=== PATIENT | female | born 1990 | race Caucasian/White ===

== ENCOUNTER 2017-04-24 22:51 | Emergency (ER) | payer SELFPAY ==
--- NOTE | 2017-04-24 22:56 | ED.PDOC ---
History of Present Illness - General Chief Complaint: General Stated Complaint: vomiting/ diarrhea Time Seen by Provider: 04/24/17 22:55 Source: patient Exam Limitations: no limitations - History of Present Illness Initial Comments: Sameera Darnell 26 y/o female stated that she had watery diarrhea since last week followed by nausea vomiting for 3 days but today still feeling nauseated no longer vomiting but still with abdominal cramps after eating;no fever,no dysuria no recent antibiotic use,no ill contact;could not remember what she ate before getting sick. Timing/Duration: 1 week, intermittent Severity: moderate Improving Factors: nothing Worsening Factors: eating Associated Symptoms: other - see hpi Allergies/Adverse Reactions: Allergies NO KNOWN ALLERGY Allergy (Verified 04/24/17 23:17) Home Medications: Ambulatory Orders Loperamide-Simethicone [Imodium Multi-Symptom Rel 2-125 mg] 1 tab PO Q6HRS PRN # 30 tab 04/25/17 Promethazine Tab [Phenergan Tablet] 25 mg PO .Q4H PRN #14 tab 04/25/17 Review of Systems - Review of Systems Constitutional: States: no symptoms reported EENTM: States: no symptoms reported Respiratory: States: no symptoms reported Cardiology: States: no symptoms reported Gastrointestinal/Abdominal: States: see HPI Genitourinary: States: no symptoms reported Past Medical History (General) - Patient Medical History Hx Seizures: No Hx Asthma: No Hx Diabetes: No Surgical History: other - c section x 2 - Female History Patient is a Female of Child Bearing Age (10 -59 yrs old): Yes Hx Last Menstrual Period: 04/25/17 Patient : No Family Medical History - Family History Mother Family History: No Known Living Status: Still Living Father Living Status: Still Living Hx Family Hypertension: Yes Physical Exam - Physical Exam General Appearance: Alert, Comfortable, No apparent distress Eye Exam: bilateral normal Ears, Nose, Throat: hearing grossly normal, normal ENT inspection, normal pharynx Neck: non-tender, full range of motion, supple, normal inspection Respiratory: lungs clear, normal breath sounds Cardiovascular/Chest: normal peripheral pulses, regular rate, rhythm, no murmur Peripheral Pulses: radial,right: 2+, radial,left: 2+ Gastrointestinal/Abdominal: normal bowel sounds, non tender, soft, no organomegaly Back Exam: no CVA tenderness, no vertebral tenderness Extremity: no pedal edema, no calf tenderness Neurologic: alert, normal mood/affect, oriented x 3 Skin Exam: normal color, warm/dry Lymphatic: no adenopathy Progress - Progress Progress: 04/25/17 00:07 Vital Signs - 8 hr 04/24/17 04/24/17 22:56 23:11 Temperature 97.7 F Pulse Rate [ 106 H 106 H Left Radial] Respiratory 18 18 Rate Blood Pressure 126/87 [Left Arm] O2 Sat by Pulse 97 Oximetry Departure - Departure Clinical Impression: Nausea alone Diarrhea Qualifiers: Diarrhea type: unspecified type Qualified Code(s): R19.7 - Diarrhea, unspecified Time of Disposition: :33 Disposition: Discharge to Home or Self Care Condition: Good Departure Forms: ED Discharge - Pt. Copy, Patient Portal Self Enrollment Instructions: Loperamide, Probiotics May Decrease Intensity and Duration of Diarrhea Due to Infection, DI for Diarrhea and Traveler's Diarrhea -- Adult, Diarrhea (Alternative Therapy), DI for Nausea -- Adult, Nausea (Alternative Therapy), Nausea and Vomiting-Adult Prescriptions: Loperamide-Simethicone [Imodium Multi-Symptom Rel 2-125 mg] 1 tab PO Q6HRS PRN # 30 tab PRN Reason: Diarrhea Promethazine Tab [Phenergan Tablet] 25 mg PO .Q4H PRN #14 tab PRN Reason: Nausea Home Medications: Ambulatory Orders Loperamide-Simethicone [Imodium Multi-Symptom Rel 2-125 mg] 1 tab PO Q6HRS PRN # 30 tab 04/25/17 Promethazine Tab [Phenergan Tablet] 25 mg PO .Q4H PRN #14 tab 04/25/17
[2017-04-24] MEDS ORDERED: LACTATED RINGERS 1,000 ML IVS ONE (22:57)
[2017-04-24] MEDS ORDERED: PROMETHAZINE HCL INJ 25 MG/ML VIAL IM ONE (22:57)
[2017-04-25 00:46] VITALS: O2SAT 98
[2017-04-25] MEDS ORDERED: HYOSCYAMINE SULFATE ER 0.375 MG TAB PO ONE (00:48)
[2017-04-25] MEDS ORDERED: LOPERAMIDE CAP 2 MG CAP PO ONE (01:37)
[2017-04-25] MEDS ORDERED: PROMETHAZINE TAB (ER DISP) 25 MG TAB PO ONE (01:37)
[2017-04-25 01:58] VITALS: BP 130/80; TEMP 97.9
== END 2017-04-25 01:58 | disposition home or self-care (01) ==
LOC: ER 22:51
DX: R19.7 Diarrhea, unspecified (principal); R11.0 Nausea
CPT/HCPCS: 36415; 80053; 84703; 85025; J2550; J7120; Q0169